=== PATIENT | male | born 1970 | race Caucasian/White ===

== ENCOUNTER 2017-08-12 08:31 | Inpatient (IN) ==
[2017-08-12] MEDS ORDERED: LORazepam 2 MG/1 ML VIAL IV STA ×2 (09:03→09:35)
[2017-08-12] MEDS ORDERED: ORPHENADRINE 60 MG/2 ML VIAL IV STA (09:03)
[2017-08-12] MEDS ORDERED: KETOROLAC 30 MG/1 ML VIAL IV STA (09:03)
[2017-08-12] MEDS ORDERED: ONDANSETRON 4 MG/2 ML VIAL IV STA (09:03)
[2017-08-12 09:18] LABS: Basophils # 0.1 10*3/uL (0.0-0.2); Basophils % 0.8 % (0.0-0.8); Eosinophils # 0.3 10*3/uL (0.0-0.87); Eosinophils % 3.5 % (0.00-10.9); Hematocrit 43.9 VOL% (42.0-52.0); Immature Granulocytes % 0.4 %; Immature Granulocytes Absolute 0.03 #; Lymphocytes # 1.5 10*3/uL (1.4-4.0); Mean Corpuscular HGB Conc 34.2 GM/DL (32-36); Mean Corpuscular Hemoglobin 29 PG (27-34); Mean Corpuscular Volume 84.6 FL (87-102); Mean Platelet Volume 11.9 FL (9.6-12.0); Monocytes # 0.8 10*3/uL (0.11-0.8); Monocytes % 9.8 % (1.7-12.7); Neutrophils # 5.7 10*3/uL (1.4-7.4); Neutrophils % 67.5 % (38.7-73.9); Platelet Count 239 T/CUMM (130-400); Red Blood Count 5.19 MC/CUMM (3.8-5.5); Red Cell Distribution Width 13.3 % (9.3-17.3); White Blood Count 8.5 T/CUMM (4-12)
[2017-08-12 09:22] LABS: PT Patient Result 10.3 SECS
[2017-08-12 09:30] LABS: Blood Urea Nitrogen 9 MG/DL (7-18); Calcium 9.4 MG/DL (8.5-10.1); Glucose 123 MG/DL (74-106); Potassium 3.2 MMOL/L (3.5-5.1); Sodium 136 MMOL/L (136-145); Troponin I Only < 0.015 NG/ML (0.00-0.045)
[2017-08-12] MEDS ORDERED: POTASSIUM BICARB EFFERVESCENT 25 MEQ TABLET PO ONE (10:07)
[2017-08-12] MEDS ORDERED: LEVOFLOXACIN INJ 750 MG in PREMIX 1 EACH IV STA (10:09)
[2017-08-12] MEDS ORDERED: SODIUM CHLORIDE 0.9% 1,000 ML IV STA (10:45)
[2017-08-12 12:19] LABS: Apearance,Urine CLEAR (Clear); Bacteria,Urine Occasional /HPF (Few); Bilirubin,Urine Negative (Negative); Blood, Urine Negative (Negative); Glucose,Urine (UA) Negative (Negative); Hyaline Casts,Urine 1 /LPF (0-3); Ketones,Urine Negative (Negative); Mucus,Urine Occasional /LPF (Occasional); Nitrite,Urine Negative (Negative); Protein,Urine Negative; RBC,Urine 1 /HPF (0-4); Squamous Epithelial Cell,Urine Occasional /HPF (0-10); Urine Color Yellow (Yellow); Urine Specific Gravity 1.009 (1.001-1.035); WBC,Urine 1 /HPF (0-6)
[2017-08-12 12:31] LABS: Barbiturates Screen,Urine Negative (Negative); Benzodiazepines Screen,Urine Negative (Negative); Cannabinoid Screen,Urine Negative (Negative); Opiate Screen,Urine Negative (Negative); Phencyclidine Screen,Urine Negative (Negative)
[2017-08-12] MEDS ORDERED: ONDANSETRON 4 MG/2 ML VIAL IV PRN (13:43)
[2017-08-12] MEDS ORDERED: ZIPRASIDONE 20 MG/1 ML VIAL IM PRN (13:43)
[2017-08-12] MEDS ORDERED: ALBUTEROL 2.5 MG/3 ML NEB RESP TX PRN (13:46)
[2017-08-12] MEDS ORDERED: POTASSIUM CHLORIDE 20 MEQ TABLET PO ONE (13:59)
[2017-08-12] MEDS ORDERED: LEVOFLOXACIN INJ 750 MG in PREMIX 1 EACH IV SCH (14:00)
[2017-08-12] MEDS: oxyCODONE/ACETAMINOPHEN 5-325 MG TABLET PO SCH ×2 (17:45→21:55)
[2017-08-12] MEDS: MONTELUKAST 10 MG TABLET PO SCH (17:45)
[2017-08-12] MEDS: clonazePAM 0.5 MG TABLET PO SCH (21:54)
[2017-08-12] MEDS: risperiDONE 1 MG TABLET PO SCH (21:54)
[2017-08-12] MEDS: carBAMazepine 200 MG TABLET PO SCH (21:55)
[2017-08-13 07:57] LABS: Calcium 8.5 MG/DL (8.5-10.1); Potassium 4.7 MMOL/L (3.5-5.1)
[2017-08-13] MEDS: MONTELUKAST 10 MG TABLET PO SCH (10:17)
[2017-08-13] MEDS: clonazePAM 0.5 MG TABLET PO SCH ×2 (10:17→21:36)
[2017-08-13] MEDS: carBAMazepine 200 MG TABLET PO SCH ×2 (10:18→21:36)
[2017-08-13] MEDS: risperiDONE 1 MG TABLET PO SCH ×2 (10:18→21:36)
[2017-08-13] MEDS: PANTOPRAZOLE 40 MG TABLET PO SCH (10:18)
[2017-08-13] MEDS: oxyCODONE/ACETAMINOPHEN 5-325 MG TABLET PO SCH ×3 (10:18→21:37)
[2017-08-13] MEDS: SODIUM CHLORIDE 0.9% 1,000 ML IV SCH (19:38)
[2017-08-14 07:56] VITALS: BP 116/70
[2017-08-14] MEDS: risperiDONE 1 MG TABLET PO SCH (09:26)
[2017-08-14] MEDS: PANTOPRAZOLE 40 MG TABLET PO SCH (09:26)
[2017-08-14] MEDS: SODIUM CHLORIDE 0.9% 1,000 ML IV SCH (09:26)
[2017-08-14] MEDS: oxyCODONE/ACETAMINOPHEN 5-325 MG TABLET PO SCH (09:26)
[2017-08-14] MEDS: clonazePAM 0.5 MG TABLET PO SCH (09:26)
[2017-08-14] MEDS: carBAMazepine 200 MG TABLET PO SCH (09:27)
[2017-08-14] MEDS: MONTELUKAST 10 MG TABLET PO SCH (09:27)
== END 2017-08-14 09:14 | disposition left against medical advice (07) | DRG 894 ==
LOC: N.ED 08:31 → N.EDINP 13:08 → SUATTDRO 13:08 → N.2E 14:25
PROVIDERS: ADMIT Internal Medicine; ATTEND Internal Medicine